=== PATIENT | male | born 1960 | race Caucasian/White ===

== ENCOUNTER 2016-10-14 19:22 | Emergency (ER) | payer OTHER ==
[~2016-10-14] VITALS: Ht 160 cm; Wt 64.0 kg
[2016-10-14 19:57] VITALS: Ht 160 cm; Wt 64.0 kg
--- NOTE | 2016-10-14 21:01 | ERD ---
ER Documentation Chief Complaint Date/Time DATE: 10/14/16 TIME: 20:59 Chief Complaint HIGH BP REFERRED BY PRIMARY FOR FURTHER EVAL, DENIES DIZZY/N/V/PAIN HPI This patient is an otherwise healthy 56-year-old male who was seen at an outside facility at his primary care doctor today and he had elevated blood pressure 180/100. He has no history of high blood pressure. His doctor started him on lisinopril which he took today for the first time. Doctor recommended he come to the emergency room for further evaluation. Patient denies any chest pain, dizziness, headache, nausea, vomiting, visual changes. He has no complaints and states he feels fine. ROS All systems reviewed and are negative except as per history of present illness. FmHx Family History: No diabetes Physical Exam Vitals Vital Signs Date Time Temp Pulse Resp B/P Pulse Ox O2 Delivery O2 Flow Rate FiO2 10/14/16 19:57 97.5 77 17 179/89 100 Physical Exam Const: [] Head: Atraumatic Eyes: Normal Conjunctiva ENT: Normal External Ears, Nose and Mouth. Neck: Full range of motion..~ No meningismus. Resp: Clear to auscultation bilaterally Cardio: Regular rate and rhythm, no murmurs Abd: Soft, non tender, non distended. Normal bowel sounds Skin: No petechiae or rashes Back: No midline or flank tenderness Ext: No cyanosis, or edema Neur: Awake and alert Psych: Normal Mood and Affect Procedures/MDM This patient was sent here for elevated blood pressure. His blood pressure is elevated 179/89. Patient's blood pressure was elevated (>120/80) but appears stable without evidence of hypertension emergency or urgency. The patient was counseled about the risks of hypertension and urged to pursue outpatient monitoring and therapy within a week with their primary care physician. He is otherwise asymptomatic and well-appearing. He was started on lisinopril today for the first time. I recommend he continue to take lisinopril follow with primary care doctor. Recommended this patient follow up with her primary care doctor within 48 hours or return to the emergency room for any worsening of symptoms. However this time I do believe there is suitable for outpatient management. I answered all their questions and they agreed with the plan and were discharged home. Departure Diagnosis: Primary Impression: Elevated blood pressure reading Condition: Stable Patient Instructions: High Blood Pressure (Hypertension) Additional Instructions: Llame al doctor MAANA y kami ramana SANTOS PARA DENTRO DE 1-2 FISHER.Dgale a la secretaria que nosotros le instruimos hacer esta santos.Avise o llame si polanco condicin se empeora antes de la santos. Regresa aqui si peor o no mejor. RICHIE YANEZ PA-C Oct 14, 2016 21:01
[2016-10-14 21:05] VITALS: BP 157/85; PULSE 78; RESP 18; TEMP 98.4
== END 2016-10-14 21:00 | disposition home or self-care (01) ==
LOC: FTE 19:22
DX: R03.0 Elevated blood-pressure reading, without diagnosis of hypertension (principal)
CPT/HCPCS: 99282